=== PATIENT | male | born 1985 | race Caucasian/White ===

== ENCOUNTER 2017-03-25 17:31 | Emergency (ER) | payer SELFPAY ==
[~2017-03-25] VITALS: Ht 180.3 cm; Wt 68.4 kg
[2017-03-25 17:36] VITALS: Ht 180.3 cm; Wt 68.4 kg
[2017-03-25] MEDS ORDERED: ONDANSETRON INJ 2 MG/ML 2 ML VIAL IV STA (17:50)
[2017-03-25] MEDS ORDERED: KETOROLAC TROMETHAMINE 30 MG/ML VIAL IV STA (17:50)
[2017-03-25] MEDS ORDERED: NYSTATIN SUSP 500,000 U/5 ML UDC PO STA (17:50)
[2017-03-25] MEDS ORDERED: SODIUM CHLORIDE 0.9% 1000ML 1,000 ML IV ONE (18:00)
[2017-03-25] MEDS ORDERED: ACETAMINOPHEN IV 100 ML IV ONE (18:00)
[2017-03-25] MEDS ORDERED: CLIN150C PO (18:03)
[2017-03-25] MEDS ORDERED: ONDA4TAB46 PO (18:03)
[2017-03-25] MEDS ORDERED: IBUP-1050 PO (18:03)
[2017-03-25] MEDS ORDERED: ACET325T96 PO (18:03)
--- NOTE | 2017-03-25 18:18 | DIAGNOSTIC IMAGING REPORT ---
SINGLE VIEW CHEST CLINICAL HISTORY: Wheezing. FINDINGS: 2 AP, portable, upright chest radiographs are compared to study dated 08/21/2015. The examination is degraded by portable technique and patient rotation. The cardiomediastinal silhouette is unremarkable. An accessory azygous fissure is incidentally noted. The lungs and pleural spaces are clear. No pneumothorax is seen. The bony thorax is grossly intact. IMPRESSION: No active disease in the chest. Electronically signed by: Rich Queen M.D. 03/25/2017 6:16 PM Dictated Date/Time: 03/25/2017 6:16 PM
[2017-03-25 19:05] LABS: BASO % 0.1 %; BASO ABS # 0.01 K/uL (0-0.2); COMPLETE YES; IG% 0.1 %; LYMPH % 11.7 %; LYMPH ABS # 1.02 K/uL (1.2-3.4); MEAN CORPUSCULAR HGB CONC 35.6 g/dl (32-36); MEAN PLATELET VOLUME 9.4 fL (7.4-10.4); MONO % 8.9 %; NEUT % 79.2 %; PLATELET COUNT 158 K/uL (130-400); RED BLOOD COUNT 4.71 M/uL (4.7-6.1); WHITE BLOOD COUNT 8.72 K/uL (4.8-10.8)
[2017-03-25 19:22] LABS: BUN/CREATININE RATIO 15.3 (10-20); CALCIUM 9.2 mg/dl (8.5-10.1); CREATININE 1.17 mg/dl (0.60-1.40); POTASSIUM 3.6 mmol/L (3.5-5.1)
[2017-03-25] MEDS ORDERED: FLUCONAZOLE 100 MG TAB PO ONE (20:00)
[2017-03-25 20:28] LABS: URINE APPEARANCE CLEAR (CLEAR); URINE BILIRUBIN NEG (NEG); URINE COLOR YELLOW; URINE EPITHELIAL CELL AUTO >30 /lpf (0-5); URINE NITRITE NEG (NEG); URINE SPECIFIC GRAVITY 1.044 (1.000-1.030); UROBILINOGEN NEG (NEG); ZZUR CULT IF INDIC CLEAN CATCH NO
[2017-03-25] MEDS ORDERED: FLUCONAZOLE 50 MG TAB ONE (20:31)
[2017-03-25 20:33] LABS: MANUAL MICROSCOPIC REQUIRED? NO; REVIEW REQ? YES
[2017-03-25 20:36] VITALS: TEMP 37.1
[2017-03-25 20:59] LABS: URINE MUCUS PRESENT (NONE PRSENT)
[2017-03-25 21:17] LABS: LYME DISEASE AB IGG NEG (NEG); LYME DISEASE AB IGM NEG (NEG)
[2017-03-25] MEDS ORDERED: FLUC200T4 PO (21:30)
[2017-03-25] MEDS ORDERED: ONDA4TAB10 SL (21:34)
[2017-03-25] MEDS ORDERED: HYDR-5688 PO (21:34)
[2017-03-25] MEDS ORDERED: NORCO 5/325MG HOME PACK PO ONE (21:45)
[2017-03-25] MEDS ORDERED: ONDANSETRON HOME PACK 4MG OD TAB PO ONE (21:45)
[2017-03-25 22:06] VITALS: BP 129/63; PULSE 77; O2SAT 95
--- NOTE | 2017-03-26 11:04 | EMERGENCY ROOM VISIT NOTE ---
History First contact with patient: 17:39 Chief Complaint: ILLNESS Stated Complaint: FEVER,SORES ON TONGUE,VOMITING CHILLS History of Present Illness The patient is a 31 year old male who presents to the Emergency Room with complaints of sore throat symptoms that have been ongoing for the past one to 2 weeks. The patient reports that his family had strep throat about 3 weeks ago. Last week the patient went to his primary care physician and was given a five- day course of Zithromax. The patient states this did not significantly help his symptoms, and yesterday he returned to his PCP. The patient was started on clindamycin, and has taken 5 total doses of this medication. He states that he has an intermittent fever and is now experiencing worsening mouth pain. He is with nausea and intermittent vomiting. The patient feels like he is able to drink and swallow, however eating is very uncomfortable. He has not had a regular meal in 3 or 4 days. The patient answers and self usually healthy and does not take medication on regular basis. He has been taking Zofran every 8 hours for his nausea symptoms, and this does seem to help him keep down fluids. He does not have chest pain, chest tightness, shortness of breath, abdominal pain, rash, or other symptoms. He rates his overall discomfort a 9/10. Review of Systems More than 10 systems were reviewed and otherwise negative with the exception of history of present illness. Past Medical/Surgical History Medical Problems: (1) No pertinent past medical history Family History No pertinent family history Social History Smoking Status: Never Smoker Alcohol Use: occasionally Drug Use: none Marital Status: Housing Status: lives with family Occupation Status: employed Current/Historical Medications Scheduled Clindamycin Hcl (Cleocin), Unknown Dose PO TID Fluconazole (Diflucan), 1 TAB PO DAILY Ibuprofen (Advil), 200-600 MG PO Q4H Ondasetron Odt (Zofran Odt), 4 MG SL Q6H Scheduled PRN Acetaminophen Tab (Tylenol), 650 MG PO for Pain or Fever Hydrocodone/Acetaminophen 5MG/325MG ([place] 5MG/325MG), 1-2 TABLET PO Q6 PRN for Pain Ondansetron Hcl (Zofran), 4 MG PO for Nausea Physical Exam Vital Signs Date Time Temp Pulse Resp B/P (MAP) Pulse Ox O2 Delivery O2 Flow Rate FiO2 03/25/17 22:06 77 18 129/63 95 03/25/17 20:36 37.1 60 18 105/63 98 Room Air 03/25/17 17:36 37.2 86 18 127/87 98 Room Air Physical Exam VITALS: Vitals are noted on the nurse's note and reviewed by myself. Vital signs stable. GENERAL: Ill-appearing white male who is resting in his emergency department bed. He does not appear toxic and is cooperative. HEAD: Normocephalic atraumatic. EARS: External ear normal. External auditory canals clear, tympanic membranes pearly connell without erythema or effusion bilaterally. EYES: Pupils equal round and reactive to light and accommodation. Conjunctivae without injection, sclerae without icterus. Extraocular movements intact. NOSE: Patent, turbinates without inflammation or discharge. MOUTH: Mucous membranes dry. There is significant yellow/white material throughout the oropharynx including the tongue and soft palate. No distinct ulcerations appreciated. This material does scrape off to reveal an underlying erythematous tongue. No peritonsillar abscess or evidence of Jama's. Uvula midline. NECK: Supple without nuchal rigidity. Shotty lymphadenopathy bilateral anterior chains HEART: Regular rate and rhythm without murmurs gallops or rubs. LUNGS: Clear to auscultation bilaterally without wheezes, rales or rhonchi. No retractions or accessory muscle use. ABDOMEN: Positive normal bowel sounds x 4. Soft, nontender, without masses or organomegaly. No guarding or rebound tenderness. Medical Decision & Procedures Laboratory Results 03/25/17 18:40 Red Blood Count 4.71, Mean Corpuscular Volume 87.0, Mean Corpuscular Hemoglobin 31.0, Mean Corpuscular Hemoglobin Concent 35.6, Mean Platelet Volume 9.4, Neutrophils (%) (Auto) 79.2, Lymphocytes (%) (Auto) 11.7, Monocytes (%) (Auto) 8.9, Eosinophils (%) (Auto) 0.0, Basophils (%) (Auto) 0.1, Neutrophils # (Auto) 6.90, Lymphocytes # (Auto) 1.02, Monocytes # (Auto) 0.78, Eosinophils # (Auto) 0.00, Basophils # (Auto) 0.01 03/25/17 18:40 Test 03/25/17 18:40 03/25/17 18:52 03/25/17 19:50 White Blood Count 8.72 K/uL (4.8-10.8) Red Blood Count 4.71 M/uL (4.7-6.1) Hemoglobin 14.6 g/dL (14.0-18.0) Hematocrit 41.0 % (42-52) Mean Corpuscular Volume 87.0 fL (80-100) Mean Corpuscular Hemoglobin 31.0 pg (25-34) Mean Corpuscular Hemoglobin Concent 35.6 g/dl (32-36) Platelet Count 158 K/uL (130-400) Mean Platelet Volume 9.4 fL (7.4-10.4) Neutrophils (%) (Auto) 79.2 % Lymphocytes (%) (Auto) 11.7 % Monocytes (%) (Auto) 8.9 % Eosinophils (%) (Auto) 0.0 % Basophils (%) (Auto) 0.1 % Neutrophils # (Auto) 6.90 K/uL (1.4-6.5) Lymphocytes # (Auto) 1.02 K/uL (1.2-3.4) Monocytes # (Auto) 0.78 K/uL (0.11-0.59) Eosinophils # (Auto) 0.00 K/uL (0-0.5) Basophils # (Auto) 0.01 K/uL (0-0.2) RDW Standard Deviation 40.0 fL (36.4-46.3) RDW Coefficient of Variation 12.4 % (11.5-14.5) Immature Granulocyte % (Auto) 0.1 % Immature Granulocyte # (Auto) 0.01 K/uL (0.00-0.02) Anion Gap 6.0 mmol/L (3-11) Est Creatinine Clear Calc Drug Dose 88.5 ml/min Estimated GFR () 95.7 Estimated GFR (Non- 82.6 BUN/Creatinine Ratio 15.3 (10-20) Calcium Level 9.2 mg/dl (8.5-10.1) Total Bilirubin 0.4 mg/dl (0.2-1) Aspartate Amino Transf (AST/SGOT) 18 U/L (15-37) Alanine Aminotransferase (ALT/SGPT) 19 U/L (12-78) Alkaline Phosphatase 62 U/L (45-117) Total Protein 7.8 gm/dl (6.4-8.2) Albumin 3.9 gm/dl (3.4-5.0) Globulin 3.9 gm/dl (2.5-4.0) Albumin/Globulin Ratio 1.0 (0.9-2) Lyme Disease IgG Antibody NEG (NEG) Lyme Disease IgM Antibody NEG (NEG) Bedside Lactic Acid Venous 0.87 mmol/L (0.90-1.70) Urine Color YELLOW Urine Appearance CLEAR (CLEAR) Urine pH 5.0 (4.5-7.5) Urine Specific [place] 1.044 (1.000-1.030) Urine Protein TRACE (NEG) Urine Glucose (UA) NEG (NEG) Urine Ketones 3+ (NEG) Urine Occult Blood NEG (NEG) Urine Nitrite NEG (NEG) Urine Bilirubin NEG (NEG) Urine Urobilinogen NEG (NEG) Urine Leukocyte Esterase NEG (NEG) Urine WBC (Auto) 1-5 /hpf (0-5) Urine RBC (Auto) 0-4 /hpf (0-4) Urine Hyaline Casts (Auto) 0 /lpf (0-5) Urine Epithelial Cells (Auto) >30 /lpf (0-5) Urine Bacteria (Auto) NEG (NEG) Urine Renal Epithelial Cells /lpf (0-5) Urine Mucus PRESENT (NONE PRSENT) Medications Administered Medications (Trade) Dose Ordered Sig/Hamida Route Start Time Stop Time Status Last Admin Dose Admin Ondansetron HCl (Zofran Inj) 4 mg NOW STAT IV 03/25/17 17:50 03/25/17 18:00 DC 03/25/17 18:50 4 MG Sodium Chloride 1,000 ml @ 999 mls/hr Q1H1M ONCE IV 03/25/17 18:00 03/25/17 19:00 DC 03/25/17 18:50 999 MLS/HR Nystatin (Mycostatin Susp) 10 ml NOW STAT PO 03/25/17 17:50 03/25/17 18:00 DC 03/25/17 18:47 10 ML Acetaminophen 100 ml @ 400 mls/hr NOW ONCE IV 03/25/17 18:00 03/25/17 18:14 DC 03/25/17 18:51 400 MLS/HR Ketorolac Tromethamine (Toradol Inj) 30 mg NOW STAT IV 11/8/17 17:50 03/25/17 18:00 DC 03/25/17 18:50 30 MG Fluconazole (Diflucan Tab) 200 mg NOW ONCE PO 03/25/17 20:00 03/25/17 20:01 DC 03/25/17 20:34 200 MG Acetaminophen/ Hydrocodone Bitart ([place] 5/325mg Home Pack) 1 homepack UD ONCE PO 03/25/17 21:45 03/25/17 21:46 DC 03/25/17 22:03 1 HOMEPACK Ondansetron HCl (ZOFRAN ODT 4MG Home Pack) 1 homepack UD ONCE PO 03/25/17 21:45 03/25/17 21:46 DC 03/25/17 22:03 1 HOMEPACK ED Course Physical exam and history were performed. Nursing notes, EMR, and Medication List were personally reviewed. Patient appears to have illness for the past 7 or 8 days. He completed a course of Zithromax and is now taking clindamycin. On examination the patient appears ill but not toxic. He has what appears to be a thrush-like process occuring in his mouth, and I suspect this is likely causing much of his discomfort. IV access was established and labs were obtained. I did elect to perform an x-ray and blood cultures due to the length of time the patient has been ill. He was hydrated and medicated as above. The patient's blood work is as above and was reviewed. He does not have a significantly elevated white blood cell count, gross anemia, bandemia, or significant electrolyte imbalance. Lactic acid is negative with cultures pending. Lyme is negative. His other labs are fairly unremarkable. I discussed options of care with my attending physician. There is certainly a concern for thrush, however I cannot immediately discount pseudomembranous colitis or other leukoplakia like illness. The patient has never had C. difficile in the past, and does not have a history of known immunodeficiency. Due to the impressive nature of the patient's symptoms I did have Dr. Orr examined the patient, and together we elected to start the patient on oral Diflucan for the next 2 weeks. The patient did have significant improvement of his symptoms after pain medication here in the department. He does feel that he is able to swallow pills and liquids, and he does not appear to need inpatient care at this time. I highly recommend the patient have close interval follow-up regarding his symptoms. Ideally I would like him to be seen by his primary care physician in the next 36-48 hours. If the patient is not able to be seen in this timeframe I did recommend that he return to the ER for recheck. He certainly understands that he may return sooner with any new, worsening, or concerning symptoms. The patient was pleased with this plan and was discharged home under the care of a female international relations teacher. The chart was completed utilizing [employer] Speech Voice Recognition Software. Grammatical errors, random word insertions, pronoun errors, and incomplete sentences are an occasional consequence of this system due to software limitations, ambient noise, and hardware issues. Any formal questions or concerns about the content, text, or information contained within the body of this dictation should be directly addressed to the provider for clarification. . Medical Decision Differential diagnosis: Etiologies such as antibiotic-induced thrush, viral syndrome, otitis, pharyngitis, pneumonia, influenza, meningitis, urinary tract infection, sepsis, bacteremia, as well as others were entertained. Impression Primary Impression: Thrush Departure Information Dispostion Home / Self-Care Condition GOOD Prescriptions Ondasetron Odt (ZOFRAN ODT) 4 Mg Tab 4 MG SL Q6H for Nausea, #12 TAB Prov: Phan Sung PA-C 03/25/17 Hydrocodone/Acetaminophen 5MG/325MG ([place] 5MG/325MG) Tab 1-2 TABLET PO Q6 Y for Pain, #15 TAB For Initial Treatment Prov: Phan Sung PA-C 03/25/17 Fluconazole (DIFLUCAN) 200 Mg Tab 1 TAB PO DAILY for 14 Days, #14 TAB Prov: Phan Sung PA-C 03/25/17 Forms HOME CARE DOCUMENTATION FORM, IMPORTANT VISIT INFORMATION Patient Instructions My [facility] Additional Instructions You were seen and evaluated today on an emergency basis only. This is not a substitute for, or an effort to provide, complete comprehensive medical care. It is not possible to recognize and treat all injuries or illnesses in a single emergency department visit. We recommend that you have a repeat checkup in the next 1-2 days for your symptoms. Please call your primary care physician's office in the morning to help make this appointment. If you are not able to be seen by your primary care physician please return to the emergency department for your recheck. Drink plenty of fluids and remain well hydrated. Take Diflucan 200 mg daily for the next 2 weeks. Discontinue your antibiotics. [place] (hydrocodone/acetaminophen) 5/325 mg ONE or TWO every 6 hours as needed for worsening breakthrough pain. Do not drink or drive on [place]. This medication will likely make you tired. Do not take [place] and Tylenol at the same time as both contain acetaminophen. [place] may cause constipation. You may wish to take an [id number]-oftnfth stool softener like Colace if this occurs. Zofran 1 tablet dissolved under the tongue every 6 hrs as needed for nausea. You are welcome to return to the emergency department anytime with new, worsening, or concerning symptoms.+
== END 2017-03-25 22:08 | disposition home or self-care (01) ==
LOC: C.EDB 17:33
DX: B37.0 Candidal stomatitis (principal); Z79.899 Other long term (current) drug therapy

== ENCOUNTER → 2017-04-02 | Outpatient (CLI) | payer OTHER ==
[~2017-04-02] MED LIST: ACET325T96 PO; CLIN150C PO; FLUC200T4 PO; HYDR-5688 PO; IBUP-1050 PO; ONDA4TAB10 SL; ONDA4TAB46 PO
[2017-04-07 13:53] LABS: HERPES SIMPLEX CULT SOURCE OTHER-MOUTH; HERPES SIMPLEX VIRUS CULT ISOLATED (NOT ISOLATED)
[2017-04-08 10:32] LABS: HSVTYPE1REFLEX ONLY!DON'T ORDR ISOLATED (NOT ISOLATED); HSVTYPE2REFLEX ONLY!DON'T ORDR NOT ISOLATED (NOT ISOLATED)
== END | disposition home or self-care (01) ==
LOC: C.LABPVFM 11:31
PROVIDERS: ATTEND Nurse Practitioner
DX: K12.0 Recurrent oral aphthae (principal); K13.70 Unspecified lesions of oral mucosa; J02.9 Acute pharyngitis, unspecified

== ENCOUNTER → 2017-04-07 | Outpatient (CLI) | payer OTHER ==
[2017-04-11 03:11] LABS: ANA SCREEN TC 249X NEGATIVE (NEGATIVE); ANTI-SS-A <1.0 NEG AI (<1.0 NEG); ANTI-SS-B <1.0 NEG AI (<1.0 NEG); COMPLEMENT C3 TC 44859W 115 MG/DL (90-180); COMPLEMENT C4 TC 44982E 21 MG/DL (16-47)
== END | disposition home or self-care (01) ==
LOC: C.LAB1850 09:37
PROVIDERS: ATTEND Internal Medicine Rheumatology
DX: R68.89 Other general symptoms and signs (principal); K12.0 Recurrent oral aphthae; K13.70 Unspecified lesions of oral mucosa

== ENCOUNTER → 2017-04-14 | Outpatient (CLI) | payer OTHER ==
[2017-04-19 20:31] LABS: HERPES SIMPLEX AB IGG-2 < 0.90 INDEX (< 0.90)
== END | disposition home or self-care (01) ==
LOC: C.LAB1850 14:42
PROVIDERS: ATTEND Internal Medicine Infectious Disease
DX: K12.0 Recurrent oral aphthae (principal)

== ENCOUNTER → 2017-05-12 | Outpatient (CLI) | payer OTHER ==
[~2017-05-12] MED LIST changes: -FLUC200T4 PO
[2017-05-14 11:02] LABS: EBV EARLY ANTIGEN AB < 9.00 U/ML
== END | disposition home or self-care (01) ==
LOC: C.LABPVFM 11:22
PROVIDERS: ATTEND Family Medicine
DX: H10.9 Unspecified conjunctivitis (principal)

== ENCOUNTER → 2017-06-15 | Outpatient (CLI) | payer OTHER ==
[2017-06-15 12:43] LABS: BASO % 0.5 %; BASO ABS # 0.03 K/uL (0-0.2); EOS % 1.5 %; EOS ABS # 0.09 K/uL (0-0.5); HEMATOCRIT 42.9 % (42-52); HEMOGLOBIN 14.6 g/dL (14.0-18.0); IG# 0.01 K/uL (0.00-0.02); LYMPH % 33.6 %; LYMPH ABS # 2.05 K/uL (1.2-3.4); MEAN CELL VOLUME 92.1 fL (80-100); MEAN CORPUSCULAR HEMOGLOBIN 31.3 pg (25-34); MEAN PLATELET VOLUME 10.7 fL (7.4-10.4); MONO % 8.5 %; MONO ABS # 0.52 K/uL (0.11-0.59); NEUT % 55.7 %; NEUT ABS # 3.41 K/uL (1.4-6.5); PLATELET COUNT 211 K/uL (130-400); RED CELL DISTRIBUTION WIDTH CV 13.6 % (11.5-14.5); RED CELL DISTRIBUTION WIDTH SD 45.4 fL (36.4-46.3); WHITE BLOOD COUNT 6.11 K/uL (4.8-10.8)
[2017-06-15 12:58] LABS: INR 0.9 (0.9-1.1)
[2017-06-15 13:03] LABS: ALT/SGPT 20 U/L (12-78); BLOOD UREA NITROGEN 15 mg/dl (7-18); CALCIUM 9.4 mg/dl (8.5-10.1); CARBON DIOXIDE 28 mmol/L (21-32); GLUCOSE 111 mg/dl (70-99); SODIUM 138 mmol/L (136-145)
[2017-06-15 13:06] LABS: ALKALINE PHOSPHATASE 56 U/L (45-117); AST/SGOT 13 U/L (15-37); TOTAL PROTEIN 7.3 gm/dl (6.4-8.2)
== END | disposition home or self-care (01) ==
LOC: C.LABPVFM 07:57
PROVIDERS: ATTEND Family Medicine
DX: B27.90 Infectious mononucleosis, unspecified without complication (principal)

== ENCOUNTER → 2017-09-02 | Outpatient (CLI) | payer OTHER ==
[~2017-09-02] MED LIST changes: +ACET-1693 PO; -ACET325T96 PO
[2017-09-02 13:11] LABS: BASO % 0.4 %; BASO ABS # 0.02 K/uL (0-0.2); EOS % 0.9 %; EOS ABS # 0.05 K/uL (0-0.5); HEMATOCRIT 46.1 % (42-52); HEMOGLOBIN 16.3 g/dL (14.0-18.0); LYMPH % 32.7 %; MEAN CELL VOLUME 85.8 fL (80-100); MEAN CORPUSCULAR HEMOGLOBIN 30.4 pg (25-34); MEAN CORPUSCULAR HGB CONC 35.4 g/dl (32-36); MEAN PLATELET VOLUME 10.4 fL (7.4-10.4); MONO % 6.2 %; MONO ABS # 0.34 K/uL (0.11-0.59); NEUT % 59.8 %; NEUT ABS # 3.29 K/uL (1.4-6.5); PLATELET COUNT 196 K/uL (130-400); RED CELL DISTRIBUTION WIDTH CV 12.9 % (11.5-14.5); RED CELL DISTRIBUTION WIDTH SD 40.7 fL (36.4-46.3)
[2017-09-02 13:21] LABS: ALBUMIN 4.8 gm/dl (3.4-5.0); ALT/SGPT 16 U/L (12-78); AST/SGOT 11 U/L (15-37); BLOOD UREA NITROGEN 12 mg/dl (7-18); CALCIUM 9.6 mg/dl (8.5-10.1); CARBON DIOXIDE 28 mmol/L (21-32); CREATININE 1.16 mg/dl (0.60-1.40); GLUCOSE 93 mg/dl (70-99); POTASSIUM 4.3 mmol/L (3.5-5.1); SODIUM 138 mmol/L (136-145)
[2017-09-02 13:24] LABS: ALKALINE PHOSPHATASE 55 U/L (45-117); TOTAL PROTEIN 7.7 gm/dl (6.4-8.2)
== END | disposition home or self-care (01) ==
LOC: C.LABPVFM 11:04
PROVIDERS: ATTEND Family Medicine
DX: M25.549 Pain in joints of unspecified hand (principal)